=== PATIENT | male | born 1950 | race Two or more races ===

== ENCOUNTER 2019-11-01 08:28 | Emergency (ER) | payer OTHER ==
[~2019-11-01] VITALS: Ht 177.8 cm; Wt 102.1 kg
== END 2019-11-01 10:22 | disposition home or self-care (01) ==
LOC: ER 08:28
DX: S50.01XA Contusion of right elbow, initial encounter (principal); W01.198A Fall on same level from slipping, tripping and stumbling with subsequent striking against other object, initial encounter; Y93.89 Activity, other specified; Y92.018 Other place in single-family (private) house as the place of occurrence of the external cause; Y99.8 Other external cause status